=== PATIENT | male | born 1940 | race Caucasian/White ===

== ENCOUNTER → 2017-12-08 21:24 | Outpatient (CLI) | payer MEDICARE, SELFPAY ==
[2017-12-08 21:35] LABS: Absolute Lymphocyte Count 3.22 X10^3/ul (0.83-4.51); Absolute Neutrophil Count 3.6 X10^3/uL (2.0-7.7); Basophil# 0.03 X10^3/uL; Basophil% 0.4 % (0-1); Eosinophil# 0.23 X10^3/uL; Eosinophils% 2.9 % (0-5); Hematocrit 39.4 % (40-54); Hemoglobin 12.9 g/dl (13.0-16.5); Lymphocyte # 3.22 X10^3/ul (4.0); Lymphocyte % 40.8 % (19-41); Mean Corp Hgb Conc 32.7 g/gl (32-36); Mean Corpuscular Volume 97.8 fL (80-94); Mean Platelet Vol. 10.2 fl (6.2-12.0); Monocyte# 0.79 X10^3/uL; Neutrophil # 3.62 X10^3/uL (2.7-7.7); Neutrophil % 45.8 % (47-70); Platelet Count 264 K/mm3 (150-450); RBC Distribution Width CV 12.2 % (11.6-14.6); RBC Distribution Width SD 42.4 fl (35.1-43.9); Red Blood Count 4.03 M/mm3 (4.6-6.2); White Blood Count 7.9 K/mm3 (4.4-11.0)
[2017-12-08 21:36] LABS: POSITIVE COUNT NO; POSITIVE DIFFERENTIAL NO; POSITIVE MORPHOLOGY NO
[2017-12-08 21:50] LABS: AST(SGOT) 25 U/L (15-37); Alanine Aminotransfer ALT/SGPT 35 U/L (16-61); Alkaline Phosphatase 86 U/L (45-117); Anion Gap 6 (5-15); BUN 16 mg/dL (7-18); BUN/Creat Ratio 13.8 RATIO (10-20); Calcium,Total 8.8 mg/dL (8.5-10.1); Chloride 104 mmol/L (98-107); Cholesterol 162 mg/dL (200); Creatinine, Serum 1.16 mg/dL (0.70-1.30); EST Glomerular Filtration Rate 65 mL/min (>60); Est Glom Filt Rate - Afr Amer 78 mL/min (>60); Globulin 3.9 g/dL (2.2-4.2); Glucose 90 mg/dL (74-106); High Density Lipoprotein 36 mg/dL; Protein, Total 7.9 g/dL (6.4-8.2); Sodium Level 138 mmol/L (136-145); Triglycerides 118 mg/dL; Very Low Density Lipoprotein 24 mg/dL (5-40)
== END ==
PROVIDERS: Visit Provider Nurse Practitioner
DX: I10 Essential (primary) hypertension (principal); D64.9 Anemia, unspecified
CPT/HCPCS: 80053; 80061; 85025

== ENCOUNTER 2020-04-13 09:26 | Outpatient (RCR) | payer MEDICARE, SELFPAY ==
[2017-12-08 16:35] VITALS: BMI 25.7
== END 2020-04-13 23:59 ==
LOC: IMMUN 09:26
PROVIDERS: Visit Provider Family Medicine
DX: Z23 Encounter for immunization (principal)
CPT/HCPCS: 0011A; 0012A

== ENCOUNTER 2023-11-09 10:55 | Outpatient (CLI) | payer MEDICARE, SELFPAY ==
[2023-11-09 12:06] LABS: Absolute Lymphocyte Count 2.38 X10^3/uL (0.83-4.51); Absolute Neutrophil Count 4.3 X10^3/uL (2.0-7.7); Basophil# 0.06 X10^3/uL; Basophil% 0.8 % (0-1); Eosinophil# 0.17 X10^3/uL; Eosinophils% 2.2 % (0-5); Hematocrit 42.1 % (40-54); Hemoglobin 13.5 g/dL (13.0-16.5); Lymphocyte # 2.38 X10^3/ul (0.83-4.51); Lymphocyte % 31.2 % (19-41); Mean Corp Hgb Conc 32.1 g/dL (32-36); Mean Corpuscular Hgb 31.8 pg (27.0-32.0); Mean Corpuscular Volume 99.1 fL (80-94); Monocyte# 0.68 X10^3/uL; Monocyte% 8.9 % (0-10); NRBC Flagged by Analyzer 0 % (0-5); Neutrophil # 4.33 X10^3/uL (2.7-7.7); Neutrophil % 56.6 % (47-70); Platelet Count 250 K/mm3 (150-450); RBC Distribution Width CV 12.2 % (11.6-14.6); RBC Distribution Width SD 44.2 fl (35.1-43.9); Red Blood Count 4.25 M/mm3 (4.6-6.2); White Blood Count 7.6 K/mm3 (4.4-11.0)
[2023-11-09 12:42] LABS: ALB/GLOB Ratio 0.8 RATIO (0.9-2.4); AST(SGOT) 30 U/L (15-37); Alanine Aminotransfer ALT/SGPT 37 U/L (16-61); Albumin, Serum 3.7 g/dL (3.2-5.0); Alkaline Phosphatase 93 U/L (45-117); Anion Gap 4 (5-15); BUN 15 mg/dL (7-18); BUN/Creat Ratio 12.3 RATIO (10-20); Calcium,Total 9.7 mg/dL (8.5-10.1); Chloride 104 mmol/L (98-107); Cholesterol 155 mg/dL (200); Creatinine, Serum 1.22 mg/dL (0.70-1.30); EST Glomerular Filtration Rate 60 mL/min (>60); Est Glom Filt Rate - Afr Amer 73 mL/min (>60); Globulin 4.5 g/dL (2.2-4.2); Glucose 92 mg/dL (74-106); High Density Lipoprotein 46 mg/dL; Potassium 4.8 mmol/L (3.5-5.1); Protein, Total 8.2 g/dL (6.4-8.2); Sodium Level 137 mmol/L (136-145); Triglycerides 80 mg/dL; Very Low Density Lipoprotein 16 mg/dL (5-40)
[2023-11-09 15:50] LABS: Vitamin D,25 Hydroxy 33.8 ng/mL
== END 2023-11-09 23:59 | disposition home or self-care (01) ==
LOC: MFPLAB 10:57
PROVIDERS: PCP Family Medicine; Visit Provider Family Medicine
DX: I10 Essential (primary) hypertension (principal); E78.5 Hyperlipidemia, unspecified; N40.0 Benign prostatic hyperplasia without lower urinary tract symptoms; R41.3 Other amnesia; Z12.5 Encounter for screening for malignant neoplasm of prostate
CPT/HCPCS: 36415; 80053; 80061; 82306; 84153; 84443; 85025; G0103

== ENCOUNTER → 2024-08-11 | Outpatient (CLI) | payer MEDICARE, SELFPAY ==
--- OUTSIDE RECORDS SUMMARY | 2024-08-11 19:09 | XMS RPT_ITS | CCD ---
Author Organization [facility] Care Team Providers Care Banquet Chef Name Role Phone Christopher, Andreina Unavailable Unavailable Christopher, Andreina Unavailable Unavailable Christopher, Andreina Unavailable Unavailable Garrett, Chalon Attending Unavailable Garrett, Chalon Primary Care Unavailable Problems Problem Classification Problem Date Documented Da te Episodic/Chronic Disorders of lipid metabolism (2 sources) Hyperlipidemia, unspecified; Translations: [Hyperlipidemia, unspecified] Onset: 10-21-2016 Chronic Other lower respiratory disease (1 source) Shortness of breath; Translations: [Shortness of breath] Onset: 12-20-2023 Episodic Results Test Name Value Interpretation Reference Range Facil ity CBC W/Diff, Automatedon 09-0 Absolute Lymph 2.38 X10 3/uL Normal 0.83-4.51 [facility] Comment on above: Order Comment: Order Date: 11/09/23 Order Info: 0184-1 - CBCD Performed By: #### L 501.9520, L500.4050, L500.4100, L506.1000, L100.0100, L501.9910 #### [facility] [address] [place], [place], [id number] (536) Absolute Neut 4.3 X10 3/uL Normal 2.0-7.7 [facility] Comment on above: Order Comment: Order Date: 11/09/23 Order Info: 0184-1 - CBCD Performed By: #### L 501.9520, L500.4050, L500.4100, L506.1000, L100.0100, L501.9910 #### [facility] [address] [place], [place], [id number] Basophils/100 WBC (Bld) 0.8 % Normal 0-1 [facility] Comment on above: Order Comment: Order Date: 11/09/23 Order Info: 0184-1 - CBCD Performed By: #### L 501.9520, L500.4050, L500.4100, L506.1000, L100.0100, L501.9910 #### [facility] [address] [place], [address] Eosinophils/100 WBC (Bld) 2.2 % Normal 0-5 [facility] Comment on above: Order Comment: Order Date: 11/09/23 Order Info: 0184- - CBCD Performed By: #### L 501.9520, L500.4050, L500.4100, L506.1000, L100.0100, L501.9910 #### [facility] [address] [place], [address] Erythrocyte distribution width (RBC) [Ratio] 12.2 % Normal 11.6-14.6 [facility] Comment on above: Order Comment: Order Date: 11/09/23 Order Info: 0184-1 - CBCD Performed By: #### L 501.9520, L500.4050, L500.4100, L506.1000, L100.0100, L501.9910 #### [facility] [address] [place], [address] Hematocrit (Bld) [Volume fraction] 42.1 % Normal 40-54 [facility] Comment on above: Order Comment: Order Date: 11/09/23 Order Info: 0184-1 - CBCD Performed By: #### L 501.9520, L500.4050, L500.4100, L506.1000, L100.0100, L501.9910 #### [facility] [address] [place], [address] Hemoglobin (Bld) [Mass/Vol] 13.5 g/dL Normal 13.0-16.5 [facility] Comment on above: Order Comment: Order Date: 11/09/23 Order Info: 0184-1 - CBCD Performed By: #### L 501.9520, L500.4050, L500.4100, L506.1000, L100.0100, L501.9910 #### [facility] [address] [place], [address] IG% 0.300 Normal 0.0-0.9 [facility] Comment on above: Order Comment: Order Date: 11/09/23 Order Info: 0184-1 - CBCD Result Comment: IG% - Immature Granulocytes (promyelocytes, myelocytes and metamyelocytes) > 1% indicates that a LEFT SHIFT is Present. Performed By: #### L 501.9520, L500.4050, L500.4100, L506.1000, L100.0100, L501.9910 #### [facility] [address] [place], [address] Lymphocytes/100 WBC (Bld) 31.2 % Normal 19-41 [facility] Comment on above: Order Comment: Order Date: 11/09/23 Order Info: 0184-1 - CBCD Performed By: #### L 501.9520, L500.4050, L500.4100, L506.1000, L100.0100, L501.9910 #### [facility] [address] [place], [address] MCH (RBC) [Entitic mass] 31.8 pg Normal 27.0-32.0 [facility] Comment on above: Order Comment: Order Date: 11/09/23 Order Info: 0184-1 - CBCD Performed By: #### L 501.9520, L500.4050, L500.4100, L506.1000, L100.0100, L501.9910 #### [facility] [address] [place], [address] MCHC (RBC) [Mass/Vol] 32.1 g/dL Normal 32-36 [facility] Comment on above: Order Comment: Order Date: 11/09/23 Order Info: 0184- - CBCD Performed By: #### L 501.9520, L500.4050, L500.4100, L506.1000, L100.0100, L501.9910 #### [facility] [address] [place], [address] MCV (RBC) [Entitic vol] 99.1 fL High 80-94 [facility] Comment on above: Order Comment: Order Date: 11/09/23 Order Info: 018- - CBCD Performed By: #### L 501.9520, L500.4050, L500.4100, L506.1000, L100.0100, L501.9910 #### [facility] [address] [place], [address] Monocytes/100 WBC (Bld) 8.9 % Normal 0-10 [facility] Comment on above: Order Comment: Order Date: 11/09/23 Order Info: 018- - CBCD Performed By: #### L 501.9520, L500.4050, L500.4100, L506.1000, L100.0100, L501.9910 #### [facility] [address] [place], [address] Neutrophils/100 WBC (Bld) 56.6 % Normal 47-70 [facility] Comment on above: Order Comment: Order Date: 11/09/23 Order Info: 0184- - CBCD Performed By: #### L 501.9520, L500.4050, L500.4100, L506.1000, L100.0100, L501.9910 #### [facility] [address] [place], [address] Nucleated RBC (Bld) [#/Vol] 0 10*3/uL Normal 0-5 [facility] Comment on above: Order Comment: Order Date: 11/09/23 Order Info: 0184- - CBCD Performed By: #### L 501.9520, L500.4050, L500.4100, L506.1000, L100.0100, L501.9910 #### [facility] [address] [place], [address] Platelet mean volume (Bld) [Entitic vol] 10.0 fL Normal 6.2-12.0 [facility] Comment on above: Order Comment: Order Date: 11/09/23 Order Info: 0184-1 - CBCD Performed By: #### L 501.9520, L500.4050, L500.4100, L506.1000, L100.0100, L501.9910 #### [facility] [address] [place], [address] Platelets (Bld) [#/Vol] 250 10*3/uL Normal 150-450 [facility] Comment on above: Order Comment: Order Date: 11/09/23 Order Info: 0184-1 - CBCD Performed By: #### L 501.9520, L500.4050, L500.4100, L506.1000, L100.0100, L501.9910 #### [facility] [address] [place], [address] RBC (Bld) [#/Vol] 4.25 10*6/uL Low 4.6-6.2 [facility] Comment on above: Order Comment: Order Date: 11/09/23 Order Info: 0184-1 - CBCD Performed By: #### L 501.9520, L500.4050, L500.4100, L506.1000, L100.0100, L501.9910 #### [facility] [address] [place], [address] RDW SD 44.2 fl High 35.1-43.9 [facility] Comment on above: Order Comment: Order Date: 11/09/23 Order Info: 0184-1 - CBCD Performed By: #### L 501.9520, L500.4050, L500.4100, L506.1000, L100.0100, L501.9910 #### [facility] [address] [place], [address] WBC (Bld) [#/Vol] 7.6 10*3/uL Normal 4.4-11.0 [facility] Comment on above: Order Comment: Order Date: 11/09/23 Order Info: 0184-1 - CBCD Performed By: #### L 501.9520, L500.4050, L500.4100, L506.1000, L100.0100, L501.9910 #### [facility] [address] [place], [address] Comprehensive Metabolic Prof ilon 11-09-2023 Albumin [Mass/Vol] 3.7 g/dL Normal 3.2-5.0 [facility] Comment on above: Order Comment: Order Date: 11/09/23 Order Info: 0786-1 - CMP Order Info: [id number] - LIPID Order Info: 3016-3 - TSH Order Info: 2857-1 - PSA Performed By: #### L 501.9520, L500.4050, L500.4100, L506.1000, L100.0100, L501.9910 #### [facility] [address] [place], [address] Albumin/Globulin [Mass ratio] 0.8 {ratio} Low 0.9-2.4 [facility] Comment on above: Order Comment: Order Date: 11/09/23 Order Info: 0786-1 - CMP Order Info: [id number] - LIPID Order Info: 3016-3 - TSH Order Info: 2857-1 - PSA Performed By: #### L 501.9520, L500.4050, L500.4100, L506.1000, L100.0100, L501.9910 #### [facility] [address] [place], [address] ALK P 93 U/L Normal 45-117 [facility] Comment on above: Order Comment: Order Date: 11/09/23 Order Info: 785-1 - CMP Order Info: - LIPID Order Info: [id number] - TSH Order Info: 2856-03 - PSA Performed By: #### L 501.9520, L500.4050, L500.4100, L506.1000, L100.0100, L501.9910 #### [facility] [address] [place], [address] ALT [Catalytic activity/Vol] 37 U/L Normal 16-61 [facility] Comment on above: Order Comment: Order Date: 11/09/23 Order Info: 785- - CMP Order Info: - LIPID Order Info: [id number] - TSH Order Info: 2856-03 - PSA Performed By: #### L 501.9520, L500.4050, L500.4100, L506.1000, L100.0100, L501.9910 #### [facility] [address] [place], [address] AST [Catalytic activity/Vol] 30 U/L Normal 15-37 [facility] Comment on above: Order Comment: Order Date: 11/09/23 Order Info: 785-03 - CMP Order Info: - LIPID Order Info: [id number] - TSH Order Info: 2856-03 - PSA Performed By: #### L 501.9520, L500.4050, L500.4100, L506.1000, L100.0100, L501.9910 #### [facility] [address] [place], [address] Bilirubin [Mass/Vol] 0.90 mg/dL Normal 0.20-1.00 [facility] Comment on above: Order Comment: Order Date: 11/09/23 Order Info: 785-03 - CMP Order Info: - LIPID Order Info: 3015-05 - TSH Order Info: 2856-03 - PSA Result Comment: For patients on eltrombopag therapy, use of Dimension [place] TBIL is not recommended. Performed By: #### L 501.9520, L500.4050, L500.4100, L506.1000, L100.0100, L501.9910 #### [facility] [address] [place], [address] BUN/CRE 12.3 RATIO Normal 10-20 [facility] Comment on above: Order Comment: Order Date: 11/09/23 Order Info: 0786-1 - CMP Order Info: [id number] - LIPID Order Info: 3016-3 - TSH Order Info: 2856-1 - PSA Performed By: #### L 501.9520, L500.4050, L500.4100, L506.1000, L100.0100, L501.9910 #### [facility] [address] [place], [address] CA,Total 9.7 mg/dL Normal 8.5-10.1 [facility] Comment on above: Order Comment: Order Date: 11/09/23 Order Info: 785-1 - CMP Order Info: [id number] - LIPID Order Info: 3 - TSH Order Info: 2856-03 - PSA Performed By: #### L 501.9520, L500.4050, L500.4100, L506.1000, L100.0100, L501.9910 #### [facility] [address] [place], [address] Chloride [Moles/Vol] 104 mmol/L Normal 98-107 [facility] Comment on above: Order Comment: Order Date: 11/09/23 Order Info: 0786-1 - CMP Order Info: [id number] - LIPID Order Info: 3 - TSH Order Info: 2857-1 - PSA Performed By: #### L 501.9520, L500.4050, L500.4100, L506.1000, L100.0100, L501.9910 #### [facility] [address] [place], [address] CO2 [Moles/Vol] 29.0 mmol/L Normal 21.0-32.0 [facility] Comment on above: Order Comment: Order Date: 11/09/23 Order Info: 07- - CMP Order Info: [id number] - LIPID Order Info: 3 - TSH Order Info: 2856-03 - PSA Performed By: #### L 501.9520, L500.4050, L500.4100, L506.1000, L100.0100, L501.9910 #### [facility] [address] [place], [address] Creatinine [Mass/Vol] 1.22 mg/dL Normal 0.70-1.30 [facility] Comment on above: Order Comment: Order Date: 11/09/23 Order Info: 785-03 - CMP Order Info: - LIPID Order Info: [id number] - TSH Order Info: 2856-03 - PSA Result Comment: The validity of the calculated GFR GFRAA in patients over 70 years has not been determined. Clinical correlation is essential. Performed By: #### L 501.9520, L500.4050, L500.4100, L506.1000, L100.0100, L501.9910 #### [facility] [address] [place], [address] EST GFR - AA 73 mL/min Normal >60 [facility] Comment on above: Order Comment: Order Date: 11/09/23 Order Info: 07 - CMP Order Info: [id number] - LIPID Order Info: 3015-05 - TSH Order Info: 2856-03 - PSA Result Comment: Afri can [place] GFR Calc Performed By: #### L 501.9520, L500.4050, L500.4100, L506.1000, L100.0100, L501.9910 #### [facility] [address] [place], [address] GAP 4 Low 5-15 [facility] Comment on above: Order Comment: Order Date: 11/09/23 Order Info: 07 - CMP Order Info: - LIPID Order Info: [id number] - TSH Order Info: 2856-03 - PSA Performed By: #### L 501.9520, L500.4050, L500.4100, L506.1000, L100.0100, L501.9910 #### [facility] [address] [place], [address] GFR/1.73 sq M.predicted among non-blacks MDRD (S/P/Bld) [Vol rate/Area] 60 mL/min/{1.73_m2} Normal >60 [facility] Comment on above: Order Comment: Order Date: 11/09/23 Order Info: 785-03 - CMP Order Info: - LIPID Order Info: [id number] - TSH Order Info: 2856-03 - PSA Result Comment: Non- GFR Calc Performed By: #### L 501.9520, L500.4050, L500.4100, L506.1000, L100.0100, L501.9910 #### [facility] [address] [place], [address] Globulin (S) [Mass/Vol] 4.5 g/dL High 2.2-4.2 [facility] Comment on above: Order Comment: Order Date: 11/09/23 Order Info: 785-03 - CMP Order Info: - LIPID Order Info: [id number] - TSH Order Info: 2856-03 - PSA Performed By: #### L 501.9520, L500.4050, L500.4100, L506.1000, L100.0100, L501.9910 #### [facility] [address] [place], [address] Glucose [Mass/Vol] 92 mg/dL Normal 74-106 [facility] Comment on above: Order Comment: Order Date: 11/09/23 Order Info: 785-03 - CMP Order Info: - LIPID Order Info: [id number] - TSH Order Info: 2856-03 - PSA Performed By: #### L 501.9520, L500.4050, L500.4100, L506.1000, L100.0100, L501.9910 #### [facility] [address] [place], [address] Potassium [Moles/Vol] 4.8 mmol/L Normal 3.5-5.1 [facility] Comment on above: Order Comment: Order Date: 11/09/23 Order Info: 86-1 - CMP Order Info: [id number] - LIPID Order Info: 3015-3 - TSH Order Info: 2856- - PSA Performed By: #### L 501.9520, L500.4050, L500.4100, L506.1000, L100.0100, L501.9910 #### [facility] [address] [place], [address] Sodium [Moles/Vol] 137 mmol/L Normal 136-145 [facility] Comment on above: Order Comment: Order Date: 11/09/23 Order Info: 785- - CMP Order Info: - LIPID Order Info: 3 - TSH Order Info: 2856-03 - PSA Performed By: #### L 501.9520, L500.4050, L500.4100, L506.1000, L100.0100, L501.9910 #### [facility] [address] [place], [address] T PROT 8.2 g/dL Normal 6.4-8.2 [facility] Comment on above: Order Comment: Order Date: 11/09/23 Order Info: 785-1 - CMP Order Info: - LIPID Order Info: 3 - TSH Order Info: 2856-03 - PSA Performed By: #### L 501.9520, L500.4050, L500.4100, L506.1000, L100.0100, L501.9910 #### [facility] [address] [place], [address] Urea nitrogen [Mass/Vol] 15 mg/dL Normal 7-18 [facility] Comment on above: Order Comment: Order Date: 11/09/23 Order Info: 0786 - CMP Order Info: [id number] - LIPID Order Info: 3 - TSH Order Info: 2856-03 - PSA Performed By: #### L 501.9520, L500.4050, L500.4100, L506.1000, L100.0100, L501.9910 #### [facility] [address] [place], [address] Lipid Profileon 11-09-2023 Cholesterol [Mass/Vol] 155 mg/dL Normal 200 [facility] Comment on above: Order Comment: Order Date: 11/09/23 Order Info: 785-03 - CMP Order Info: - LIPID Order Info: [id number] - TSH Order Info: 2856-03 - PSA Result Comment: <200 mg/dL Desirable 200-240 mg/dL Borderline >240 mg/dL High Risk Performed By: #### L 501.9520, L500.4050, L500.4100, L506.1000, L100.0100, L501.9910 #### [facility] [address] [place], [address] Cholesterol in HDL [Mass/Vol] 46 mg/dL Normal [facility] Comment on above: Order Comment: Order Date: 11/09/23 Order Info: 0786 - CMP Order Info: [id number] - LIPID Order Info: 3 - TSH Order Info: 1 - PSA Result Comment: The drugs N-Acetylcysteine and Metamizole may falsely depress this assay. Reference Range HDL <40 mg/dL Low HDL Cholesterol HDL >or= 60 mg/dL High HDL Cholesterol Performed By: #### L 501.9520, L500.4050, L500.4100, L506.1000, L100.0100, L501.9910 #### [facility] [address] [place], [address] Cholesterol in LDL [Mass/Vol] 93 mg/dL Normal 0-130 [facility] Comment on above: Order Comment: Order Date: 11/09/23 Order Info: 785- - CMP Order Info: - LIPID Order Info: 3 - TSH Order Info: 2856-03 - PSA Performed By: #### L 501.9520, L500.4050, L500.4100, L506.1000, L100.0100, L501.9910 #### [facility] [address] [place], [address] Cholesterol in VLDL [Mass/Vol] 16 mg/dL Normal 5-40 [facility] Comment on above: Order Comment: Order Date: 11/09/23 Order Info: 785-03 - CMP Order Info: - LIPID Order Info: [id number] - TSH Order Info: 2856-03 - PSA Performed By: #### L 501.9520, L500.4050, L500.4100, L506.1000, L100.0100, L501.9910 #### [facility] [address] [place], [place], [id number] (410) Triglyceride [Mass/Vol] 80 mg/dL Normal [facility] Comment on above: Order Comment: Order Date: 11/09/23 Order Info: 07 - CMP Order Info: - LIPID Order Info: 3 - TSH Order Info: 2856-03 - PSA Result Comment: The drugs N-Acetylcysteine and Metamizole may falsely depress this assay. Serum Triglycerides Reference Interval Normal <150 mg/dL Borderline high 150 - 199 mg/dL High 200 - 499 mg/dL Very High > or = 500 mg/dL Performed By: #### L 501.9520, L500.4050, L500.4100, L506.1000, L100.0100, L501.9910 #### [facility] [address] [place], [address] PSA,Total - Annual Screenon 11-09-2023 PSA,TOT SCREEN 10.40 ng/mL High 0.00-4.00 [facility] Comment on above: Order Comment: Order Date: 11/09/23 Order Info: 0786-1 - CMP Order Info: [id number] - LIPID Order Info: [id number] - TSH Order Info: 7-1 - PSA Result Comment: This test was performed using the TPSA assay method for the [employer] chemistry system. Values obtained with different assay methods cannot be used interchangably. When changing PSA assays in the course of monitoring a patient, additional sequential testing should be carried out to confirm baseline values. Performed By: #### L 501.9520, L500.4050, L500.4100, L506.1000, L100.0100, L501.9910 #### [facility] [address] [place], [place], [address] Thyroid Stim Hormone (TSH)on 11-09-2023 TSH 3.590 uIU/mL Normal 0.358-3.740 [facility] Comment on above: Order Comment: Order Date: 11/09/23 Order Info: 0786-1 - CMP Order Info: [id number] - LIPID Order Info: [id number] - TSH Order Info: 2856-03 - PSA Performed By: #### L 501.9520, L500.4050, L500.4100, L506.1000, L100.0100, L501.9910 #### [facility] [address] [place], [place], [id number] Vitamin D,25 Hydroxyon 11-08 Vitamin D 25-OH 33.8 ng/mL Normal [facility] Comment on above: Order Comment: Order Date: 11/09/23 Order Info: [id number] - VITD25 Result Comment: Carole min D 25(OH) Status Range Deficiency <20 ng/mL (50nmol/L) Insufficiency 20 - 30 ng/mL (50 - 75 nmol/L) Sufficiency 30 - 100 ng/mL (75 - 250 nmol/L) Toxicity >100 ng/mL (>250 nmol/L) Performed By: #### L 501.9520, L500.4050, L500.4100, L506.1000, L100.0100, L501.9910 #### [facility] [address] [place], [address] Encounters Encounter Date Encounter Type Care Provider Facility Start: 11-09-2023 End: 11-09-2023 ambulatory Tiff Tucker Facility:[facility] Start: 10-21-2016 Ambulatory Andreina [facility] Payers Date Payer Category Payer Medicare [id number] 2023 Self-pay Private Health Insurance Unknown [id number] Summary Purpose Family History No Family History Records FoundNo Family History Records Found Advance Directives No Advanced Directives Records FoundNo Advanced Directives Records Found Additional Source Comments (unrecognized sect ion and content) No Status Records FoundNo Status Records Found INFORMATION SOURCE (unrecogn ized section and content) DATE CREATED AUTHOR 08/26/2017 [facility] DATE CREATED AUTHOR AUTHOR'S ORGANIZ ATION 12/21/2023 [facility] FOR RECORDS PERTAINING TO PATIENTS WHO ARE OR HAVE BEEN ENROLLED IN A CHEMICAL DEPENDENCY/SUBSTANCEABUSE PROGRAM, SOME INFORMATION MAY BE OMITTED. This clinical summary was aggregated from multiple sources. Caution should be exercised in using it in the provision of clinical care. This summary normalizes information from multiple sources, and as a consequence, information in this document may materially change the coding, format and clinical context of patient data. In addition, data may be omitted in some cases. CLINICAL DECISIONS SHOULD BE BASED ON THE PRIMARY CLINICAL RECORDS. [employer] provides no warranty or guarantee of the accuracy or completeness of information in this document.
== END | disposition home or self-care (01) ==
LOC: MFPLAB 09:20
PROVIDERS: PCP Family Medicine; Referring Provider Family Medicine; Visit Provider Family Medicine
DX: Z12.5 Encounter for screening for malignant neoplasm of prostate (principal)
CPT/HCPCS: 36415; 84153; G0103